=== PATIENT | male | born 1970 | race Caucasian/White ===

== ENCOUNTER 2020-07-12 21:10 | Inpatient (IN) | payer BC ==
[2020-07-12] MEDS ORDERED: CLINDAMYCIN 900MG/D5W 900 MG/50 ML IVPB IV ONE (22:03)
[2020-07-12] MEDS ORDERED: NA CHLORIDE 0.9% 1,000 ML ONE (22:03)
[2020-07-12 22:15] LABS: Bilirubin Direct 0.3 mg/dL (0-0.2); Bilirubin Total 0.8 mg/dL (0.2-1.0); Potassium 3.8 mmol/L (3.5-5.1); Protein, Total 7.5 g/dL (6.4-8.2)
[2020-07-12] MEDS ORDERED: dexAMETHasone 10 MG/ML VIAL ONE (22:29)
[2020-07-12 22:34] LABS: Protime INR 0.96
[2020-07-12 22:37] LABS: Absolute Lymphocytes (CBC) 1.8 K/uL (0.7-4.9); Basophils % 0.5 % (0-1.3); Hematocrit 41.3 % (39.6-49.0); Lymphocytes % 10.7 % (15.3-44.8); MPV 7.7 fL (7.6-11.3); RBC Red Blood Cell Count 4.73 M/uL (4.33-5.43)
--- NOTE | 2020-07-12 22:42 | EDPHYS ---
Physician Documentation [facility] Name: Edwin Lim Age: 50 yrs Sex: Male : 1970 Arrival Date: 07/12/2020 Time: 21:16 Bed 23 Private MD: ED Physician Bunny Caro HPI: 07/12 22:11 This 50 yrs old Male presents to ER via Ambulatory with complaints of mh7 Abscess, Swelling Of Tongue, Teeth Problem. 22:11 the patient presents with a swollen area of the lower right first molar (#30) and mh7 mouth. Description: swollen. Onset: The symptoms/episode began/occurred 2 day(s) ago. Possible cause(s): Tooth infection. Associated signs and symptoms: Pertinent positives: swelling, Pertinent negatives: discharge, drainage, erythema, foreign body sensation, fever, headache, nausea, shortness of breath, vomiting. Modifying factors: the symptoms are alleviated by nothing, the symptoms are aggravated by nothing. Severity of symptoms: At their worst the symptoms were moderate, earlier today, in the emergency department the symptoms are unchanged. Patient was started on Amoxicillin by dentist for right lower tooth infection. He reports increased swelling to tooth, mouth, and lower jaw.. Historical: - Allergies: 21:30 No Known Allergies; ca1 - Home Meds: 21:30 None [Active]; ca1 - PMHx: 21:30 Anxiety; ca1 - PSHx: 21:30 None; ca1 - Immunization history:: Flu vaccine is not up to date. - Social history:: Smoking status: Patient reports the use of cigarette tobacco products, smokes one pack cigarettes per day. ROS: 22:11 Constitutional: Negative for fever, chills, and weight loss, Eyes: Negative for injury, mh7 pain, redness, and discharge, Cardiovascular: Negative for chest pain, palpitations, and edema, Respiratory: Negative for shortness of breath, cough, wheezing, and pleuritic chest pain, Abdomen/GI: Negative for abdominal pain, nausea, vomiting, diarrhea, and constipation, Back: Negative for injury and pain, : Negative for injury, bleeding, discharge, and swelling, MS/Extremity: Negative for injury and deformity, Skin: Negative for injury, rash, and discoloration, Neuro: Negative for headache, weakness, numbness, tingling, and seizure, Psych: Negative for depression, anxiety, suicide ideation, homicidal ideation, and hallucinations, Allergy/Immunology: Negative for hives, rash, and allergies, Endocrine: Negative for neck swelling, polydipsia, polyuria, polyphagia, and marked weight changes, Hematologic/Lymphatic: Negative for swollen nodes, abnormal bleeding, and unusual bruising. Exam: 22:11 Constitutional: This is a well developed, well nourished patient who is awake, alert, mh7 and in no acute distress. 22:11 Eyes: Pupils equal round and reactive to light, extra-ocular motions intact. Lids and lashes normal. Conjunctiva and sclera are non-icteric and not injected. Cornea within normal limits. Periorbital areas with no swelling, redness, or edema. 22:11 Neck: Trachea midline, no thyromegaly or masses palpated, and no cervical lymphadenopathy. Supple, full range of motion without nuchal rigidity, or vertebral point tenderness. No Meningismus. Chest/axilla: Normal chest wall appearance and motion. Nontender with no deformity. No lesions are appreciated. Cardiovascular: Regular rate and rhythm with a normal S1 and S2. No gallops, murmurs, or rubs. Normal PMI, no JVD. No pulse deficits. Respiratory: Lungs have equal breath sounds bilaterally, clear to auscultation and percussion. No rales, rhonchi or wheezes noted. No increased work of breathing, no retractions or nasal flaring. Abdomen/GI: Soft, non-tender, with normal bowel sounds. No distension or tympany. No guarding or rebound. No evidence of tenderness throughout. Back: No spinal tenderness. No costovertebral tenderness. Full range of motion. Skin: Warm, dry with normal turgor. Normal color with no rashes, no lesions, and no evidence of cellulitis. MS/ Extremity: Pulses equal, no cyanosis. Neurovascular intact. Full, normal range of motion. Neuro: Awake and alert, GCS 15, oriented to person, place, time, and situation. Cranial nerves II-XII grossly intact. Motor strength 5/5 in all extremities. Sensory grossly intact. Cerebellar exam normal. Normal gait. Psych: Awake, alert, with orientation to person, place and time. Behavior, mood, and affect are within normal limits. 22:11 Head/face: Noted is swelling, of the right mandible and left mandible, and submandibular. 22:11 ENT: External ear(s): are unremarkable, Ear canal(s): are normal, TM's: are normal, Nose: is normal, Mouth: Tongue: is swollen, mild edema floor of mouth, drooling, is not appreciated, Posterior pharynx: is normal, airway is patent, Tonsils: are normal in appearance, Uvula: normal, swelling, is not appreciated, erythema, is not appreciated, exudate, is not appreciated, peritonsillar mass, is not appreciated, pooling of secretions, is not appreciated, Dental exam: dental caries, that is mild, specifically in the lower right first molar (#30), Voice: is normal, Breath odor: is normal. Vital Signs: 21:27 BP 152 / 91; Pulse 84; Resp 16 S; Temp 97(TE); Pulse Ox 97% on R/A; Weight 70.31 kg ca1 (R); Height 5 ft. 8 in. (172.72 cm) (R); Pain 7/10; 21:50 BP 136 / 79; Pulse 80; Resp 17; Pulse Ox 99% ; rr5 23:00 BP 125 / 79; Pulse 81; Resp 18; Pulse Ox 99% ; rr5 07/13 00:00 BP 131 / 75; Pulse 85; Resp 16; Pulse Ox 98% ; rr5 07/12 21:27 Body Mass Index 23.57 (70.31 kg, 172.72 cm) ca1 MDM: 07/12 22:38 Differential diagnosis: abscess, allergic reaction, cellulitis, Angioedema, Cj's mh7 Angina. Data reviewed: vital signs, nurses notes, lab test result(s), CBC, electrolytes, urinalysis, radiologic studies, CT scan. Data interpreted: Pulse oximetry: on room air is 97 %. Interpretation: normal. Counseling: I had a detailed discussion with the patient and/or guardian regarding: the historical points, exam findings, and any diagnostic results supporting the discharge/admit diagnosis, the presence of at least one elevated blood pressure reading (>120/80) during this emergency department visit, lab results, the need for further work-up and treatment in the hospital. Physician consultation: Ladonna Obregon MD was contacted at 22:00, regarding patient's condition, and will see patient in ED, would like admission per Dr. Nick King DO in the emergency department to see patient at 22:25. 22:42 Patient medically screened. [facility] 07/12 21:43 Order name: CBC with Diff; Complete Time: 22:38 [facility] 07/12 21:43 Order name: Basic Metabolic Panel; Complete Time: 22:21 [facility] 07/12 21:43 Order name: LFT's; Complete Time: 22:21 [facility] 07/12 21:43 Order name: Protime (+inr); Complete Time: 22:38 [facility] 07/12 21:43 Order name: Ptt, Activated; Complete Time: 22:38 [facility] 07/12 21:43 Order name: Blood Culture Adult (2) [facility] 07/12 21:43 Order name: CT Soft Tissue Neck W/contr [facility] 07/12 22:43 Order name: COVID-19 : Document "Date of Symptom Onset" if Symptomatic. lp1 07/13 00:01 Order name: CREATININE WHOLE BLOOD EDMS 02 00:35 Order name: SARS-COV-2 RT PCR EDMS Administered Medications: 21:50 Drug: NS 0.9% 1000 ml Route: IV; Rate: 1000 ml; Site: right forearm; rr5 07/13 00:01 Follow up: Response: No adverse reaction; IV Status: Completed infusion; IV Intake: rr5 1000ml 07/12 22:12 Drug: Clindamycin 900 mg Route: IVPB; Infused Over: 30 mins; Site: right forearm; rv 22:50 Follow up: Response: No adverse reaction; IV Status: Completed infusion; IV Intake: [id number] 22:20 Drug: Decadron - Dexamethasone 10 mg Route: IVP; Site: right forearm; rv 23:20 Follow up: Response: No adverse reaction rr5 22:52 Drug: Pepcid 20 mg Route: IVP; Site: right forearm; rr5 07/13 00:00 Follow up: Response: No adverse reaction rr5 07/12 22:54 Drug: morphine 2 mg {Note: rass 0.} Route: IVP; Site: right forearm; rr5 07/13 00:00 Follow up: Response: No adverse reaction; Pain is decreased; RASS: Alert and Calm (0) rr5 Disposition: 07/13/20 00:14 Hospitalization ordered by Nick King for Inpatient Admission. Preliminary diagnosis is Dental caries - Cj's Angina. - Bed requested for Telemetry/MedSurg (Inpatient). - Status is Inpatient Admission. lp1 - Condition is Stable. Signatures: Dispatcher [employer] EDMS Kellie Ruiz, RN RN lp1 William Saunders, FOUNDRY SUPERVISOR-C FOUNDRY SUPERVISOR-Cla1 Sulma Schwartz, RN RN cg Júnior Khan, RN EMANUEL rv Antonino Jensen, RN RN rr5 Heidi Cleveland RN RN [facility] Bunny Caro MD MD 7 Corrections: (The following items were deleted from the chart) 07/12 23:59 22:42 Hospitalization Ordered by Nick King DO for Inpatient Admission. Preliminary rv diagnosis is Ludwigs Angina. Bed requested for Telemetry/MedSurg (Inpatient). Status is Inpatient Admission. Condition is Stable. Problem is new. Symptoms have improved. [facility] 07/13 00:15 00:14 Hospitalization Ordered by Bunny Caro MD for Inpatient Admission. Preliminary lp1 diagnosis is Dental caries - Cj's Angina. Bed requested for [facility] ER HOLD. Status is Inpatient Admission. Condition is Stable. lp1 00:50 00:15 07/13/2020 00:14 Hospitalization Ordered by Nick King DO for Inpatient Admission. Preliminary diagnosis is Dental caries - Cj's Angina. Bed requested for [facility] ER HOLD. Status is Inpatient Admission. Condition is Stable. lp1 03:17 00:50 07/13/2020 00:14 Hospitalization Ordered by Nick King DO for Inpatient lp1 Admission. Preliminary diagnosis is Dental caries - Cj's Angina. Bed requested for Telemetry/MedSurg (Inpatient). Status is Inpatient Admission. Condition is Stable. cg
--- NOTE | 2020-07-12 22:42 | ER ---
Nurse's Notes [facility] Name: Edwin Lim Age: 50 yrs Sex: Male : 1970 Arrival Date: 07/12/2020 Time: 21:16 Bed 23 Private MD: Diagnosis: Dental caries-Cj's Angina Presentation: 07/12 21:27 Chief complaint: Patient states: Abscess tooth R lower started Wednesday. On ABX now x ca1 2 days. Reports pain, tongue swollen, difficulty swallowing. Reports swelling under chin. Denies difficulty breathing. Has a dentist appointment Wednesday next week. Coronavirus screen: Client denies travel out of the [place] in the last 14 days. At this time, the client does not indicate any symptoms associated with coronavirus-19. Ebola Screen: Patient negative for fever greater than or equal to 101.5 degrees Fahrenheit, and additional compatible Ebola Virus Disease symptoms Patient denies exposure to infectious person. Patient denies travel to an Ebola-affected area in the 21 days before illness onset. No symptoms or risks identified at this time. Initial Sepsis Screen: Does the patient meet any 2 criteria? No. Patient's initial sepsis screen is negative. Does the patient have a suspected source of infection? No. Patient's initial sepsis screen is negative. Risk Assessment: Do you want to hurt yourself or someone else? Patient reports no desire to harm self or others. Onset of symptoms was July 12, 2020. 21:27 Method Of Arrival: Ambulatory ca1 21:27 Acuity: MAIOC 3 ca1 Historical: - Allergies: 21:30 No Known Allergies; ca1 - Home Meds: 21:30 None [Active]; ca1 - PMHx: 21:30 Anxiety; ca1 - PSHx: 21:30 None; ca1 - Immunization history:: Flu vaccine is not up to date. - Social history:: Smoking status: Patient reports the use of cigarette tobacco products, smokes one pack cigarettes per day. Screenin:38 Abuse screen: Denies threats or abuse. Denies injuries from another. Nutritional rr5 screening: No deficits noted. Tuberculosis screening: No symptoms or risk factors identified. Fall Risk Total Andrade Fall Scale indicates No Risk (0-24 pts). Assessment: 21:30 General: Appears in no apparent distress. uncomfortable, Behavior is calm, cooperative, rr5 appropriate for age. Pain: Complains of pain in mouth Pain radiates to neck Pain currently is 7 out of 10 on a pain scale. Quality of pain is described as aching, Pain began gradually, Is intermittent. Neuro: Level of Consciousness is awake, alert, obeys commands, Oriented to person, place, time, situation. Cardiovascular: Capillary refill < 3 seconds Patient's skin is warm and dry. Respiratory: Airway is patent Respiratory effort is even, unlabored, Respiratory pattern is regular, symmetrical. GI: No signs and/or symptoms were reported involving the gastrointestinal system. : No signs and/or symptoms were reported regarding the genitourinary system. EENT: Poor dentition noted. Dental caries noted in lower right first molar (#30) Throat with gag reflex present, Reports pain when swallowing Pain is 7 out of 10 on a pain scale. 21:30 Derm: Skin is pink, warm \T\ dry. Skin temperature is warm. Musculoskeletal: Capillary rr5 refill < 3 seconds. 22:30 Reassessment: Patient appears in no apparent distress at this time. dr. joyce with rr5 hospitalist at bedside examining the patient. 23:59 Reassessment: Patient appears in no apparent distress at this time. Patient is alert, rr5 oriented x 3, equal unlabored respirations, skin warm/dry/pink. Vital Signs: 21:27 BP 152 / 91; Pulse 84; Resp 16 S; Temp 97(TE); Pulse Ox 97% on R/A; Weight 70.31 kg ca1 (R); Height 5 ft. 8 in. (172.72 cm) (R); Pain 7/10; 21:50 BP 136 / 79; Pulse 80; Resp 17; Pulse Ox 99% ; rr5 23:00 BP 125 / 79; Pulse 81; Resp 18; Pulse Ox 99% ; rr5 07/13 00:00 BP 131 / 75; Pulse 85; Resp 16; Pulse Ox 98% ; rr5 07/12 21:27 Body Mass Index 23.57 (70.31 kg, 172.72 cm) ca1 ED Course: 07/12 21:16 Patient arrived in ED. bp1 21:23 Júnior Khan, EMANUEL is Primary Nurse. rv 21:29 Triage completed. ca1 21:30 Arm band placed on right wrist. ca1 21:31 Bunny Caro MD is Attending Physician. mh7 21:38 Patient has correct armband on for positive identification. Bed in low position. Call rr5 light in reach. Pulse ox on. NIBP on. 21:45 Inserted saline lock: 20 gauge in right forearm, using aseptic technique. ,using rr5 aseptic technique. inserted by afsaneh CASTELLANOS Blood collected. 21:45 First set of blood cultures drawn by ED staff. rr5 22:26 CT Soft Tissue Neck W/contr In Process Unspecified. EDMS 22:41 Nick King DO is Hospitalizing Provider. mh7 07/13 00:02 No provider procedures requiring assistance completed. Patient admitted, IV remains in rr5 place. intact, No redness/swelling at site. 00:02 No provider procedures requiring assistance completed. rv 00:11 Bunny Caro MD is Hospitalizing Provider. lp1 00:15 Hospitalizing Provider role handed off by Bunny Caro MD lp1 00:15 Nick King DO is Hospitalizing Provider. lp1 Administered Medications: 07/12 21:50 Drug: NS 0.9% 1000 ml Route: IV; Rate: 1000 ml; Site: right forearm; rr5 07/13 00:01 Follow up: Response: No adverse reaction; IV Status: Completed infusion; IV Intake: rr5 1000ml 07/12 22:12 Drug: Clindamycin 900 mg Route: IVPB; Infused Over: 30 mins; Site: right forearm; rv 22:50 Follow up: Response: No adverse reaction; IV Status: Completed infusion; IV Intake: [id number] 22:20 Drug: Decadron - Dexamethasone 10 mg Route: IVP; Site: right forearm; rv 23:20 Follow up: Response: No adverse reaction rr5 22:52 Drug: Pepcid 20 mg Route: IVP; Site: right forearm; rr5 07/13 00:00 Follow up: Response: No adverse reaction rr5 07/12 22:54 Drug: morphine 2 mg {Note: rass 0.} Route: IVP; Site: right forearm; rr5 07/13 00:00 Follow up: Response: No adverse reaction; Pain is decreased; RASS: Alert and Calm (0) rr5 Intake: 07/12 22:50 IV: 50ml; Total: 50ml. rr5 07/13 00:01 IV: 1000ml; Total: 1050ml. rr5 Outcome: 07/12 22:42 Decision to Hospitalize by Provider. mh7 07/13 00:02 Admitted to ER Hold. Please see [facility] for further documentation. rr5 Condition: stable Instructed on the need for admit. 00:14 Decision to Hospitalize by Provider. lp1 03:17 Patient left the ED. lp1 Signatures: Dispatcher [employer] EDMS Kellie Ruiz RN RN lp1 Júnior Khan, RN RN rv Antonino Jensen RN RN rr5 Heidi Cleveland RN RN ca1 María Coffman Maurice, MD MD 7 Corrections: (The following items were deleted from the chart) 07/12 20:35 21:27 Chief complaint: Patient states: Abscess tooth R lower started Wednesday. On ABX ca1 now x 2 days. Reports pain, tongue swollen, difficulty swallowing. Denies difficulty breathing. Has a dentist appointment Wednesday next week ca1 21:27 Acuity: MAICO 4 ca1 ca1
[2020-07-12] MEDS ORDERED: FAMOTIDINE 20 MG/2 ML VIAL IV ONE (22:59)
[2020-07-12] MEDS ORDERED: MORPHINE 2 MG/ML SYR ONE (23:03)
--- NOTE | 2020-07-13 | P.HP ---
Certification for Inpatient Patient admitted to: Inpatient With expected LOS: >2 Midnights Patient will require the following post-hospital care: None Practitioner: I am a practitioner with admitting privileges, knowledge of patient current condition, hospital course, and medical plan of care. Services: Services provided to patient in accordance with Admission requirements found in Title 42 Section 412.3 of the Code of Federal Regulations <William Saunders - Last Filed: 07/12/20 23:55> Patient admitted to: Inpatient With expected LOS: >2 Midnights <Nick King - Last Filed: 07/13/20 15:42> Patient History Date of Service: 07/12/20 Primary Care Provider: Kerline Russo Reason for admission: Cj's angina History of Present Illness: 50-year-old male with history of depression, anxiety, cluster headaches presents the emergency department for facial swelling. Patient reports that he has been dealing with dental infection over the course of the last few days. Patient reports being on amoxicillin since Wednesday but having increased swelling over the last 2 days. Upon arrival to the ED patient noted to have submandibular and sublingual edema. Lab significant for white blood cell count 17 with left shift. ENT was consulted and saw the patient in the emergency department, patient with Cj's angina. At this time patient is able to handle his secretions very well speech is clear appropriate, in no increase in respiratory effort at all. Appears to be a mild to moderate case of Cj's. EENT okay with patient going to floor for close monitoring with IV antibiotics and steroids. CT does not identify any discrete drainable abscess. Patient has appointment on Wednesday to have offending tooth removed. Will admit for further evaluation and management. - Past Medical/Surgical History -: Depression -: Anxiety -: Cluster headaches -: none Psychosocial/ Personal History: Patient lives with his - Family History Family History: Reviewed- Non-Contributory - Social History Smoking Status: Current every day smoker Counseled patient to stop smoking for: less than 10 minutes Smoking therapy provided: Yes Alcohol use: Yes CD- Drugs: No Caffeine use: Yes Place of Residence: Home <William Saunders - Last Filed: 07/12/20 23:55> Date of Service: 07/13/20 <Nick King - Last Filed: 07/13/20 15:42> Review of Systems 10-point ROS is otherwise unremarkable General: Malaise ENT: Mouth Pain, Mouth Swelling, Throat Pain, Other (Submandibular edema), As per HPI <William Saunders - Last Filed: 07/12/20 23:55> Physical Examination - Physical Exam General: Alert, In no apparent distress, Oriented x3 HEENT: Mucous membr. moist/pink, Other (Submandibular, subungual edema, poor dentition with would appear to be abscessed tooth on the lower right) Neck: Supple Respiratory: Clear to auscultation bilaterally, Normal air movement Cardiovascular: No edema, Normal S1 S2 Capillary refill: <2 Seconds Gastrointestinal: Normal bowel sounds Musculoskeletal: No contractures, No erythema, No tenderness Integumentary: No significant lesion, No tenderness/swelling, No erythema Neurological: Normal speech, Normal strength at 5/5 x4 extr, Normal tone, Sensation intact - Studies Laboratory Data (last 24 hrs) 07/12/20 21:45: PT 11.0, INR 0.96, APTT 27.9 07/12/20 21:45: Sodium 140, Potassium 3.8, BUN 12, Creatinine 1.07, Glucose 83, Total Bilirubin 0.8, AST 14 L, ALT 29, Alkaline Phosphatase 90 07/12/20 21:45: WBC 17.10 H, Hgb 13.7, Hct 41.3, Plt Count 259 <William Saunders - Last Filed: 07/12/20 23:55> - Studies Laboratory Data (last 24 hrs) 07/12/20 21:45: PT 11.0, INR 0.96, APTT 27.9 07/12/20 21:45: Sodium 140, Potassium 3.8, BUN 12, Creatinine 1.07, Glucose 83, Total Bilirubin 0.8, AST 14 L, ALT 29, Alkaline Phosphatase 90 07/12/20 21:45: WBC 17.10 H, Hgb 13.7, Hct 41.3, Plt Count 259 <Nick King - Last Filed: 07/13/20 15:42> Assessment and Plan - Plan Assessment Cj's angina secondary to dental caries with abscess Depression with anxiety Plan Cj's angina secondary to dental caries with abscess: ENT has seen and evaluated the patient, continue IV clindamycin. Patient takes prednisone 20 mg once daily for last couple of weeks for cluster headaches, will give patient bolus doses of Decadron x3 followed by continuing prednisone 20 mg daily. Patient currently in no respiratory distress, speech is clear, no difficulty handling secretions. Will continue to monitor patient very closely for worsening and the need of securing airway. Patient reports having appointment on Wednesday to have offending tooth removed. DVT prophylaxis Lovenox 40 mg subcutaneous once daily. Full liquid diet. Depression with anxiety: Obtain and continue home medications as appropriate. Discharge Plan: Home Plan to discharge in: 72 Hours - Advance Directives Does patient have a Living Will: No Does patient have a Durable POA for Healthcare: No - Code Status/Comfort Care Code Status Assessed: Yes (Full code) Critical Care: No Time Spent Managing Pts Care (In Minutes): 55 <William Saunders - Last Filed: 07/12/20 23:55> - Plan agree with plan of care. case discussed with [employer]ANCE GROUP LEADER. <Nick King - Last Filed: 07/13/20 15:42>
[2020-07-13] MEDS ORDERED: ACETAMINOPHEN 500 MG TAB PO PRN (00:43)
[2020-07-13] MEDS ORDERED: ONDANSETRON 4 MG/2 ML VIAL IV PRN (00:43)
[2020-07-13] MEDS: CLINDAMYCIN INJ 600 MG in NA CHLORIDE 0.9% 50 ML IV SCH ×3 (01:00→17:24)
[2020-07-13] MEDS: HYDROCODONE/APAP 5/325 MG TAB PO PRN ×4 (01:03→18:57)
[2020-07-13] MEDS: NA CHLORIDE 0.9% 1,000 ML IV SCH ×3 (01:04→20:12)
[2020-07-13] MEDS ORDERED: HYDROCODONE/APAP 5/325 MG TAB ONE (01:18)
[2020-07-13] MEDS ORDERED: NA CHLORIDE 0.9% 1,000 ML ONE (01:18)
--- NOTE | 2020-07-13 01:43 | CON ---
Date of Consultation: 07/12/2020 Reason For Consultation: Oral cellulitis. History Of Present Illness: Mr. Lim began having some sore throat on Wednesday, July 08. He DICTATION ENDS HERE. HAYLEY Voice ID: [id number] Report ID: [id number]
--- NOTE | 2020-07-13 02:28 | CON ---
Date of Consultation: 07/12/2020 Reason For Consultation: Oral cellulitis. History Of Present Illness: Mr. Lim presented to the emergency room on the evening of July 12 with a 5-day history of progressive mouth pain and throat pain and swelling. He was seen earlier this week by his dentist and started on amoxicillin, but continued to have fluctuation, but general progression of the swelling and sought additional medical evaluation. He is scheduled to see his dentist on Wednesday for extraction of the affected tooth. Past Medical History: Depression, anxiety, cluster headache. Past Surgical History: None. Allergies: NONE. Home Medications: Include prednisone 20 mg daily for the last 2 weeks. Primary Care Physician: Dr. Kerline wKok. Social History: Smokes about 1 pack a day. Drinks 2-4 alcoholic beverages per week. Denies drug use. The patient is and lives at home with his . Physical Examination: The patient is in no acute distress. He is controlling his secretions. His speech is easily understandable. He appears relaxed and is able to sit in a semi-reclined position without difficulty. His head and face are normocephalic and atraumatic. His external ears are normal. His pupils are equal, round, and reactive. His extraocular movements are intact. His sclerae are clear. His external nose is unremarkable. He nares appear patent. His lips appear normal. He has no significant trismus. The oral tongue does not appear significantly swollen. The floor of mouth, however, appears moderately edematous, particularly around the opening of Emanuel's ducts where there are small areas of white eschar. The area is mild to moderately tender and mildly indurated, but not hard. On the right side, his second molar has a large filling. The first molar is cracked with a missing portion of tooth. The remaining teeth appear grossly remarkable. The patient has moderate firm induration of the submental area in level 1 of the neck. The skin of the lower neck appears red, but maybe due to sun exposure rather than infection. The skin overlying the submental area does not appear significantly erythematous at this time. Review Of Data: CT images performed in the emergency room are personally reviewed. No radiology report is available at the time of my review. There is no significant or organized fluid collection. There is diffuse edema with his physical exam of the floor of mouth. The edges of the epiglottis appeared sharp. There is downward displacement of the mylohyoid with fat stranding of the subcutaneous tissues of the submental region. There is periapical lucency with erosion of the lingual surface of the mandible adjacent to the second right mandibular molar. There are some prominent lymph nodes within the neck, which are likely reactive in this clinical setting. Assessment: Cj's angina without current evidence of airway obstruction. Plan: I recommend aggressive medical therapy with IV antibiotic, clindamycin. I recommend Decadron 8-10 mg every 8 hours for 2-3 doses and would continue his baseline prednisone and other home medications. The patient currently is clinically appropriate for floor status, but is counselled regarding notification of nursing and medical staff for any worsening of swelling, swallowing, or speaking, which could indicate progression of the infection and possible need for intubation or other methods of securing his airway. There is no current plan for surgical intervention and if the patient improves with medical therapy over the next 24 to 48 hours, he can be discharged to the care of his dentist or addressing the 2 as the source of this infection. I spoke with the patient personally following my exam. I spoke with the patient's during our discussion to coordinate care. Overall, in preparation, history and physical, review of imaging and care coordination, I spent 45 minutes with this patient. I will plan to re-evaluate him in the morning to aid in decision making in regard to his medical progression versus improvement. HAYLEY Voice ID: [id number] Report ID: [id number] ANITA
[2020-07-13 03:19] VITALS: BMI 24.5
[2020-07-13] MEDS: MORPHINE 2 MG/ML SYR IV PRN (03:22)
[2020-07-13 05:59] LABS: Absolute Lymphocytes (CBC) 0.7 K/uL (0.7-4.9); Basophils % 0.3 % (0-1.3); Hematocrit 41.3 % (39.6-49.0); Lymphocytes % 3.5 % (15.3-44.8); MPV 7.6 fL (7.6-11.3); RBC Red Blood Cell Count 4.69 M/uL (4.33-5.43)
[2020-07-13 06:06] LABS: Magnesium 2.6 mg/dL (1.8-2.4); Potassium 4.5 mmol/L (3.5-5.1)
[2020-07-13] MEDS: dexAMETHasone 10 MG/ML VIAL IV SCH ×2 (06:48→14:25)
[2020-07-13] MEDS ORDERED: dexAMETHasone 10 MG/ML VIAL IV SCH (07:00)
--- NOTE | 2020-07-13 09:24 | PN ---
Date of Progress Note: 07/13/2020 Interim History: The patient was admitted last night for aggressive medical therapy for Cj's angina with infection coming from an abscessed right mandibular molar tempted admission last night. The patient has remained stable. He is able to tolerate full liquid diet. He continued to have a stable degree of pain and discomfort. Objective: The patient is in no acute distress. He is alert and oriented. He is lying relaxed semi reclined in bed. He has no trouble tolerating his secretion. His speech is easily understandable. The submental skin remains indurated and swollen with no significant improvement compared to approximately 10 hours ago. The floor of mouth remains [id number] indurated with moderate soft tissue edema, particularly around Cameron's duct. The area remained tender to palpation. Assessment: Cj angina, stable compared to last night. The patient does not appear to be worsening or require any acute airway intervention at this time. I strongly recommend continued IV therapy and monitoring. We will continue to follow and reassess the patient in regard to clinical improvement and candidacy for discharge. HAYLEY Voice ID: [id number] Report ID: [id number] ANITA
[2020-07-13] MEDS: ENOXAPARIN 40 MG/0.4 ML SQ SCH (09:44)
[2020-07-13] MEDS: ROSUVASTATIN 10 MG TAB PO SCH (09:44)
[2020-07-13] MEDS: SERTRALINE HCL 100 MG TAB PO SCH (09:44)
[2020-07-13 10:51] LABS: White Blood Cell Scan OK (OK)
[2020-07-13 10:52] LABS: Blood Morphology Comment NOT SEEN (NOT SEEN); Platelet Estimate ADEQ
--- NOTE | 2020-07-13 15:48 | P.PN ---
Subjective Date of Service: 07/13/20 Primary Care Provider: Kerline Russo Chief Complaint: Cj's angina Subjective: Improving (Swelling to the neck improved. Pain is improved.) Physical Examination - Vital Signs Temperature: 98.1 F Blood Pressure: 137/82 Pulse: 101 Respirations: 18 Pulse Ox (%): 95 - Studies Laboratory Data (last 24 hrs) 07/12/20 21:45: PT 11.0, INR 0.96, APTT 27.9 07/12/20 21:45: Sodium 140, Potassium 3.8, BUN 12, Creatinine 1.07, Glucose 83, Total Bilirubin 0.8, AST 14 L, ALT 29, Alkaline Phosphatase 90 07/12/20 21:45: WBC 17.10 H, Hgb 13.7, Hct 41.3, Plt Count 259 Assessment & Plan Discharge Plan: Home Plan to discharge in: 48 Hours Physician Review Additional Text: Physical Exam: General: Alert, In no apparent distress, Oriented x3 HEENT: Mucous membr. moist/pink, Other (Submandibular, subungual edema, poor dentition with would appear to be abscessed tooth on the lower right) Neck: Supple Respiratory: Clear to auscultation bilaterally, Normal air movement Cardiovascular: No edema, Normal S1 S2 Capillary refill: <2 Seconds Gastrointestinal: Normal bowel sounds Musculoskeletal: No contractures, No erythema, No tenderness Integumentary: No significant lesion, No tenderness/swelling, No erythema Neurological: Normal speech, Normal strength at 5/5 x4 extr, Normal tone, Sensation intact Impression: Cj's angina secondary to dental caries with abscess Depression with anxiety Plan: Cj's angina secondary to dental caries with abscess: Pain is controlled. Erythema and swelling improved. Spoke to ENT. Continue with IV antibiotics. Continue with steroids. Will continue to monitor. Anticipate home as early as tomorrow or Wednesday. To see Dentist on Wednesday. Depression with anxiety: Continue medication Time Spent Managing Pts Care (In Minutes): 55
--- NOTE | 2020-07-13 16:59 | RAD REPORT ---
EXAM DESCRIPTION: CT - Soft Tissue Neck W/Contr - 07/13/2020 6:44 am CLINICAL HISTORY: 50 years Male, abscess right lower tooth, started Wednesday, difficulty swallowing , swelling. TECHNIQUE Axial CT imaging of the soft tissues of the neck were performed following the administrati on of intravenous contrast. followed by sagittal and coronal reconstructed images. The CT study is pe rformed according to ALARA (as low as reasonably achievable) or ALARA/IMAGE GENTLY, with automatic ad justment of mA and/or kV according to patient size. Performed on: 07/12/2020 at 10:19 PM COMPARISON: None. FINDINGS: This is The oral cavity, oropharynx and nasopharynx are normal. Some portions of the oral cavity and orophary nx are obscured by streak artifact related to the patient's dental hardware. The parapharyngeal fa t planes are preserved. The hypopharynx is unremarkable. The epiglottis and aryepiglottic folds are normal. There is effacement of the right vallecula and rig ht piriform sinus. The preepiglottic fat is preserved. The thyroid, cricoid and arytenoid cartilag es are normal. The region of the false and true vocal cords is normal as is the anterior commissure. The parotid and submandibular glands are grossly within normal limits. No intrinsic mass lesions are seen. There is edema within the right submandibular space anterior to the right submandibular gland a nd posterior medial to the right submandibular gland with slight mass effect on the right parapharyng eal soft tissues. Small developing abscesses are not excluded. There is effacement of the right vicente lecula and right piriform sinus as noted above. There is also infiltration of the subcutaneous fat de ep to the platysma muscle consistent with inflammation. There are small lymph nodes in the right subm andibular space at the level of the angle of the right hemimandible. A well-defined abscess is not id entified. There is a lucency surrounding the right posterior mandibular molar most consistent with in fection. The carotid sheaths are normal bilaterally. The paranasal sinuses and mastoid air cells are clear. No definite pathologically enlarged lymph nodes are identified The thyroid gland is normal in size and configuration. The thoracic inlet is normal. The superior mediastinum and lung apices are normal. No acute osseous abnormalities are identified. There is degenerative disc disease at C5-C6 and C6-C7. IMPRESSION: 1. Inflammatory changes with edema in the right submandibular space at the level of the angle of the right hemimandible surrounding the right submandibular gland with slight mass effect on the right parapharyngeal soft tissues. Small developing abscesses adjacent to the right submandibular gland are not excluded. There is a lucency surrounding the right posterior mandibular molar most con sistent with infection. 2. Degenerative disc disease at C5-C6 and C6-C7. Electronically signed by: Joelle Rajput DO 07/12/2020 11:25 PM [employer] Due to temporary technical issues with the PACS/Fluency reporting system, reports are being signed by the in house radiologists without review as a courtesy to insure prompt reporting. The interpreting radiologist is fully responsible for the content of the report.
[2020-07-14] MEDS: MORPHINE 2 MG/ML SYR IV PRN ×4 (00:29→21:35)
[2020-07-14] MEDS: CLINDAMYCIN INJ 600 MG in NA CHLORIDE 0.9% 50 ML IV SCH ×3 (00:33→16:27)
[2020-07-14] MEDS: HYDROCODONE/APAP 5/325 MG TAB PO PRN ×5 (04:39→23:50)
[2020-07-14 05:58] LABS: Absolute Lymphocytes (CBC) 1.3 K/uL (0.7-4.9); Basophils % 0.3 % (0-1.3); Hematocrit 37.2 % (39.6-49.0); Lymphocytes % 6.7 % (15.3-44.8); MPV 7.5 fL (7.6-11.3); RBC Red Blood Cell Count 4.29 M/uL (4.33-5.43)
[2020-07-14 06:06] LABS: BUN Blood Urea Nitrogen 15 mg/dL (7-18); Bicarbonate 26 mmol/L (21-32); Glucose Level 102 mg/dL (74-106); Magnesium 2.5 mg/dL (1.8-2.4); Sodium Level 138 mmol/L (136-145)
[2020-07-14] MEDS: predniSONE 20 MG TAB PO SCH (08:34)
[2020-07-14] MEDS: ROSUVASTATIN 10 MG TAB PO SCH (08:34)
[2020-07-14] MEDS: ALPRAZOLAM 0.5 MG TABLET PO PRN (08:34)
[2020-07-14] MEDS: SERTRALINE HCL 100 MG TAB PO SCH (08:35)
[2020-07-14] MEDS: ENOXAPARIN 40 MG/0.4 ML SQ SCH (08:35)
--- NOTE | 2020-07-14 09:27 | P.PN ---
Subjective Date of Service: 07/14/20 Primary Care Provider: Kerline Russo Chief Complaint: Cj's angina Subjective: Other (Patient remains afebrile. Still with pain. Requiring IV pain medication. This am he reports more swelling to the right side of the mandible and tongue.) Physical Examination - Vital Signs Temperature: 97.9 F Blood Pressure: 148/86 Pulse: 70 Respirations: 18 Pulse Ox (%): 98 Assessment & Plan Discharge Plan: Home Plan to discharge in: 48 Hours Physician Review Additional Text: Physical Exam: General: Alert, In no apparent distress, Oriented x3 HEENT: Mucous membr. moist/pink. Tongue slightly swollen. Swelling and induration to the submandibular region. Some erythema noted to the area as well. Patient breathing appropriately. Nasal passages clear. No significant respiratory distress noted. Poor dentition noted. Neck: Supple Respiratory: Clear to auscultation bilaterally, Normal air movement Cardiovascular: No edema, Normal S1 S2 Capillary refill: <2 Seconds Gastrointestinal: Normal bowel sounds Musculoskeletal: No contractures, No erythema, No tenderness Integumentary: No significant lesion, No tenderness/swelling, No erythema Neurological: Normal strength at 5/5 x4 extr, Normal tone, Sensation intact CT scan neck 07/12/2020 FINDINGS: This is The oral cavity, oropharynx and nasopharynx are normal. Some portions of the oral cavity and oropharynx are obscured by streak artifact related to the patient's dental hardware. The parapharyngeal fat planes are preserved. The hypopharynx is unremarkable. The epiglottis and aryepiglottic folds are normal. There is effacement of the right vallecula and right piriform sinus. The preepiglottic fat is preserved. The thyroid, cricoid and arytenoid cartilages are normal. The region of the false and true vocal cords is normal as is the anterior commissure. The parotid and submandibular glands are grossly within normal limits. No intrinsic mass lesions are seen. There is edema within the right submandibular space anterior to the right submandibular gland and posterior medial to the right submandibular gland with slight mass effect on the right parapharyngeal soft tissues. Small developing abscesses are not excluded. There is effacement of the right vallecula and right piriform sinus as noted above. There is also infiltration of the subcutaneous fat deep to the platysma muscle consistent with inflammation. There are small lymph nodes in the right submandibular space at the level of the angle of the right hemimandible. A well-defined abscess is not identified. There is a lucency surrounding the right posterior mandibular molar most consistent with infection. The carotid sheaths are normal bilaterally. The paranasal sinuses and mastoid air cells are clear. No definite pathologically enlarged lymph nodes are identified The thyroid gland is normal in size and configuration. The thoracic inlet is normal. The superior mediastinum and lung apices are normal. No acute osseous abnormalities are identified. There is degenerative disc disease at C5-C6 and C6-C7. IMPRESSION: 1. Inflammatory changes with edema in the right submandibular space at the level of the angle of the right hemimandible surrounding the right submandibular gland with slight mass effect on the right parapharyngeal soft tissues. Small developing abscesses adjacent to the right submandibular gland are not excluded. There is a lucency surrounding the right posterior mandibular molar most consistent with infection. 2. Degenerative disc disease at C5-C6 and C6-C7. CT scan neck today stat ordered Impression: Cj's angina secondary to dental caries with CT scan showing inflammatory changes with edema in the right submandibular space at the level of the right hemimandible surrounging the right submandibular gland with slight mass effect on the right parapharyngeal soft tissues. Small developing abscess adjacent to the right submandibular gland and lucency surrounding the right posterior mandibular molar consistent with infection Depression with anxiety Plan: Cj's angina secondary to dental caries with CT scan showing inflammatory changes with edema in the right submandibular space at the level of the right hemimandible surrounging the right submandibular gland with slight mass effect on the right parapharyngeal soft tissues. Small developing abscess adjacent to the right submandibular gland and lucency surrounding the right posterior mandibular molar consistent with infection: Patient with slight more pain today. Continue pain medication. Case discussed with ENT. ENT recommended to recheck stat CT scan to further evaluate. ENT also recommended oral surgery. Spoke with oral surgeon-Dr. Machuca who graciously accepted consultation. Oral surgery plans to re-evaluate stat CT scan and anticipates surgical intervention today. Will keep the patient NPO. Will also add Unasyn. Patient currently on IV clindamycin. Plan of care addressed with the patient. Patient understands and agrees with plan. Await further evaluation by oral surgery and his recommendations. I will turn the service over to the hospitalist team tomorrow. I will go over the plan of care with him.. Depression with anxiety: Continue medication Time Spent Managing Pts Care (In Minutes): 55
--- NOTE | 2020-07-14 10:05 | RAD REPORT ---
EXAM DESCRIPTION: CT - Soft Tissue Neck W/Contr CLINICAL HISTORY: f/u Facial pain and swelling, tooth pain COMPARISON: Soft Tissue Neck W/Contr dated 07/12/[address] scans are performed using dose optimization technique as appropriate and may includ e automated exposure control or mA/KV adjustment according to patient size. FINDINGS: There is moderate swelling seen along the floor of the mouth along the right submandibular location. Several large reactive lymph nodes are seen in the region. Compared to 07/12/2020 CT bruit edema and swelling as mildly progressed. An oblong abscess appears present on today's study along the right with mild adjacent to the lingual surface of the mandible measuring 20 x 13 mm. These appear to communicate with oblong abscess collect ions in the sublingual soft tissues anteriorly measuring 20 x 11 mm and posteriorly measuring 10 x 7 mm. Sublingual soft tissues are inflamed with several lymph nodes present. Edematous fluid without di screte abscess is seen along the right base of the tongue with mild mass effect on the pharynx. Moder ate edema seen within the right submandibular gland. Mild periapical lucency is again seen involving the right posterior molar. No vascular compromise evident. No prevertebral fluid. IMPRESSION: Moderate progression in the right-sided facial swelling and infection since 07/12/2020. Archbald abscess collection is seen along the right floor of mouth extending into the sublingual soft t issues.
[2020-07-14] MEDS: AMPICILLIN/SULBACT 3 GM in NA CHLORIDE 0.9% 100 ML IVPB SCH ×2 (10:26→16:27)
[2020-07-14] MEDS: LIDOCAINE 1% W/EPI 1:100,000 10 ML VIAL ONE ×2 (11:21→12:02)
[2020-07-14] MEDS: CHLORHEXIDINE 0.12% 473ML BOT MM ONE ×2 (11:22→12:02)
[2020-07-14] MEDS ORDERED: MIDAZOLAM HCL 2 MG/2 ML INJ ONE (11:31)
[2020-07-14] MEDS ORDERED: LIDOCAINE 1% MPF 5 ML VIAL ONE ×2 (11:31→11:33)
[2020-07-14] MEDS ORDERED: FENTANYL CITR 100 MCG/2 ML ONE (11:31)
[2020-07-14] MEDS ORDERED: GLYCOPYRROLATE 0.2 MG/ML SYR ONE (11:31)
[2020-07-14] MEDS ORDERED: propofoL 200 MG/20 ML VIAL IV ONE (11:31)
[2020-07-14] MEDS ORDERED: KETOROLAC 30 MG/ML INJ ONE (11:32)
[2020-07-14] MEDS ORDERED: NEOSTIGMINE 1 MG/ML -5 ML ONE (11:32)
[2020-07-14] MEDS ORDERED: dexAMETHasone 4 MG/ML VIAL ONE (11:32)
[2020-07-14] MEDS ORDERED: ONDANSETRON 4 MG/2 ML VIAL ONE (11:33)
[2020-07-14] MEDS ORDERED: ROCURONIUM 50 MG/5 ML VIAL IV ONE (11:33)
[2020-07-14] MEDS ORDERED: Ringers Lactate 1,000 ML IV ONE (11:44)
[2020-07-14] MEDS: NA CHLORIDE 0.9% 1,000 ML IV SCH ×2 (14:17→16:43)
[2020-07-15] MEDS: CLINDAMYCIN INJ 600 MG in NA CHLORIDE 0.9% 50 ML IV SCH ×3 (01:19→16:31)
[2020-07-15] MEDS: AMPICILLIN/SULBACT 3 GM in NA CHLORIDE 0.9% 100 ML IVPB SCH ×3 (01:21→16:31)
[2020-07-15] MEDS: NA CHLORIDE 0.9% 1,000 ML IV SCH ×3 (01:25→22:43)
[2020-07-15] MEDS: MORPHINE 2 MG/ML SYR IV PRN ×4 (03:26→21:42)
[2020-07-15 04:34] LABS: Absolute Lymphocytes (CBC) 1.8 K/uL (0.7-4.9); Basophils % 0.1 % (0-1.3); Hematocrit 38.3 % (39.6-49.0); Lymphocytes % 11.9 % (15.3-44.8); MPV 7.2 fL (7.6-11.3); RBC Red Blood Cell Count 4.33 M/uL (4.33-5.43)
[2020-07-15] MEDS: ALPRAZOLAM 0.5 MG TABLET PO PRN (04:34)
[2020-07-15 04:45] LABS: Magnesium 2.5 mg/dL (1.8-2.4); Potassium 4.3 mmol/L (3.5-5.1)
[2020-07-15] MEDS: HYDROCODONE/APAP 5/325 MG TAB PO PRN ×4 (05:36→19:13)
--- NOTE | 2020-07-15 07:07 | P.PN ---
Date of Service: 07/14/20 I was contacted on the morning of Jul [address] King. He stated the patient's symptoms were worsening without airway obstruction and that exam findings were more localizing and worsening on the right side. Due to the prior evalaution and imaging findings, we agreed with repeat imaging. Due to the odontogenic nature of this infection, I felt surgical drainage of the abscess without dental extraction would not be beneficial to the patient. I suggested contacting the [facility] service for consultation and surgical treatment of the infection including extraction. I will remain available as needed for any airway concerns.
[2020-07-15] MEDS: predniSONE 20 MG TAB PO SCH (09:21)
[2020-07-15] MEDS: ROSUVASTATIN 10 MG TAB PO SCH (09:21)
[2020-07-15] MEDS: ENOXAPARIN 40 MG/0.4 ML SQ SCH (09:22)
[2020-07-15] MEDS: SERTRALINE HCL 100 MG TAB PO SCH (09:26)
[2020-07-15] MEDS ORDERED: HYDROCORTISONE SUC 100 MG INJ IV ONE (16:00)
[2020-07-15] MEDS: HYDROCORTISONE SUC 100 MG INJ IV SCH (20:28)
[2020-07-16] MEDS: CLINDAMYCIN INJ 600 MG in NA CHLORIDE 0.9% 50 ML IV SCH ×2 (01:17→08:04)
[2020-07-16] MEDS: AMPICILLIN/SULBACT 3 GM in NA CHLORIDE 0.9% 100 ML IVPB SCH ×3 (01:18→16:36)
[2020-07-16] MEDS: HYDROCORTISONE SUC 100 MG INJ IV SCH ×3 (01:19→16:34)
[2020-07-16 02:57] VITALS: O2SAT 99
[2020-07-16] MEDS: NA CHLORIDE 0.9% 1,000 ML IV SCH ×2 (06:51→19:46)
[2020-07-16] MEDS: HYDROCODONE/APAP 5/325 MG TAB PO PRN ×4 (08:01→20:30)
[2020-07-16] MEDS: ENOXAPARIN 40 MG/0.4 ML SQ SCH (08:03)
[2020-07-16] MEDS: ROSUVASTATIN 10 MG TAB PO SCH (08:03)
[2020-07-16] MEDS: SERTRALINE HCL 100 MG TAB PO SCH (08:03)
[2020-07-16] MEDS: predniSONE 20 MG TAB PO SCH (09:00)
[2020-07-16] MEDS: MORPHINE 2 MG/ML SYR IV PRN ×2 (10:06→14:46)
[2020-07-16 11:43] LABS: BUN Blood Urea Nitrogen 19 mg/dL (7-18); Bicarbonate 29 mmol/L (21-32); Glucose Level 134 mg/dL (74-106); Magnesium 2.4 mg/dL (1.8-2.4); Phosphorus 2.4 mg/dL (2.5-4.9); Potassium 3.5 mmol/L (3.5-5.1); Sodium Level 140 mmol/L (136-145)
[2020-07-16 11:56] LABS: Absolute Lymphocytes (CBC) 1.3 K/uL (0.7-4.9); Basophils % 0.3 % (0-1.3); Hematocrit 37.7 % (39.6-49.0); Lymphocytes % 9.6 % (15.3-44.8); MPV 7.5 fL (7.6-11.3); RBC Red Blood Cell Count 4.35 M/uL (4.33-5.43)
--- NOTE | 2020-07-16 14:23 | P.PN ---
Subjective Date of Service: 07/15/20 Patient states his pain is worsened. Will go ahead and add anti-inflammatory with steroids. Dr. Quiñones to see patient later today. Review of Systems 10-point ROS is otherwise unremarkable Physical Examination - Vital Signs Temperature: 97.4 F Blood Pressure: 146/85 Pulse: 85 Respirations: 18 Pulse Ox (%): 99 - Physical Exam General: Alert, In no apparent distress, Oriented x3 HEENT: Atraumatic, PERRLA, EOMI Neck: Other (Dressing in place with penvose drain) Respiratory: Clear to auscultation bilaterally, Normal air movement Cardiovascular: Regular rate/rhythm, Normal S1 S2 Gastrointestinal: Normal bowel sounds, No tenderness Musculoskeletal: No tenderness Integumentary: No rashes Neurological: Normal speech, Normal tone, Normal affect Lymphatics: No axilla or inguinal lymphadenopathy - Studies Medications List Reviewed: Yes Assessment & Plan - Problems (Diagnosis) (1) Dental abscess Current Visit: Yes Status: Acute (2) Status post tooth extraction Current Visit: Yes Status: Acute (3) Submandibular abscess Current Visit: Yes Status: Acute - Plan 1. Continue with IV antibiotic 2. Continue with local wound care 3. Oral maxillofacial surgery consultation appreciated 4. Gentle IV hydration 5. Monitor CBC 6. Strict blood sugar monitoring 7. Pain control 8. Added IV steroids 9. GI and DVT prophylaxis Discharge Plan: Home Plan to discharge in: Greater than 2 days - Advance Directives Does patient have a Living Will: Yes Does patient have a Durable POA for Healthcare: Yes - Code Status/Comfort Care Code Status Assessed: Yes Code Status: Full Code Critical Care: No Time Spent Managing PTS Care (In Minutes): 35
[2020-07-17] MEDS: AMPICILLIN/SULBACT 3 GM in NA CHLORIDE 0.9% 100 ML IVPB SCH ×2 (01:01→08:51)
[2020-07-17] MEDS: HYDROCORTISONE SUC 100 MG INJ IV SCH ×2 (01:02→08:57)
[2020-07-17] MEDS: HYDROCODONE/APAP 5/325 MG TAB PO PRN ×2 (04:33→08:56)
[2020-07-17] MEDS: NA CHLORIDE 0.9% 1,000 ML IV SCH (04:43)
--- NOTE | 2020-07-17 08:03 | P.PN ---
Subjective Date of Service: 07/16/[address] Quiñones anyone to keep patient in the hospital through tonight for continued antibiotic therapy and discharge in the morning. Most likely discharge in morning if patient continues to improve. Review of Systems 10-point ROS is otherwise unremarkable Physical Examination - Vital Signs Temperature: 97.5 F Blood Pressure: 156/86 Pulse: 68 Respirations: 16 Pulse Ox (%): 98 - Physical Exam General: Alert, In no apparent distress, Oriented x3 HEENT: Atraumatic, PERRLA, EOMI Neck: Supple, JVD not distended Respiratory: Clear to auscultation bilaterally, Normal air movement Cardiovascular: Regular rate/rhythm, Normal S1 S2 Gastrointestinal: Normal bowel sounds, Soft and benign, Non-distended, No tenderness Musculoskeletal: No clubbing, No swelling, No tenderness Integumentary: No rashes Neurological: Normal speech, Normal tone, Normal affect Lymphatics: No axilla or inguinal lymphadenopathy - Studies Medications List Reviewed: Yes Assessment & Plan - Problems (Diagnosis) (1) Dental abscess Current Visit: Yes Status: Acute (2) Status post tooth extraction Current Visit: Yes Status: Acute (3) Submandibular abscess Current Visit: Yes Status: Acute - Plan Continue plan of care as mentioned below 1. Continue with IV antibiotic 2. Continue with local wound care 3. Oral maxillofacial surgery consultation appreciated 4. Gentle IV hydration 5. Monitor CBC 6. Strict blood sugar monitoring 7. Pain control 8. Added IV steroids 9. GI and DVT prophylaxis Discharge Plan: Home Plan to discharge in: Greater than 2 days - Advance Directives Does patient have a Living Will: Yes Does patient have a Durable POA for Healthcare: Yes - Code Status/Comfort Care Code Status: Full Code Critical Care: No Time Spent Managing PTS Care (In Minutes): 35
--- NOTE | 2020-07-17 08:09 | P.DS ---
Discharge Date: 07/17/20 Primary Care Provider: Kerline Russo Disposition: ROUTINE DISCHARGE Discharge Condition: GOOD Reason for Admission: Cj's angina - Problems (1) Dental abscess Status: Acute (2) Status post tooth extraction Status: Acute (3) Submandibular abscess Status: Acute Brief History of Present Illness: Patient is a 50-year-old male with history of depression, anxiety, cluster headaches presents the emergency department for facial swelling. Patient reports that he has been dealing with dental infection over the course of the last few days. Patient reports being on amoxicillin since Wednesday but having increased swelling over the last 2 days. Upon arrival to the ED patient noted to have submandibular and sublingual edema. Lab significant for white blood cell count 17 with left shift. ENT was consulted and saw the patient in the emergency department, patient with Cj's angina. At this time patient is able to handle his secretions very well speech is clear appropriate, in no increase in respiratory effort at all. Appears to be a mild to moderate case of Cj's. EENT okay with patient going to floor for close monitoring with IV antibiotics and steroids. CT does not identify any discrete drainable abscess. Patient has appointment on Wednesday to have offending tooth removed. Will admit for further evaluation and management. Hospital Course: She was given IV antibiotics. Patient Was seen by an oral maxillofacial surgery and had extraction of the tooth and drainage of the abscess. Patient had a and whose strain left in place. This was removed prior to discharge. Patient is doing better and at this time is stable for discharge home with outpatient follow up with oral maxillofacial surgeon in 1 week. Return to the Emergency room if symptoms worsen. Vital Signs/Physical Exam: Temp Pulse Resp BP Pulse Ox 97.5 F 68 16 156/86 H 98 07/17/20 08:02 07/17/20 08:02 07/17/20 08:02 07/17/20 08:02 07/17/20 08:02 General: Alert, In no apparent distress, Oriented x3 Neck: Other (penvose drain) Laboratory Data at Discharge: WBC 13.10 K/uL (4.3-10.9) H 07/16/20 11:09 Hgb 12.5 g/dL (13.6-17.9) L 07/16/20 11:09 Hct 37.7 % (39.6-49.0) L 07/16/20 11:09 Plt Count 289 K/uL (152-406) 07/16/20 11:09 PT 11.0 SECONDS (9.5-12.5) 07/12/20 21:45 INR 0.96 07/12/20 21:45 APTT 27.9 SECONDS (24.3-36.9) 07/12/20 21:45 Sodium 140 mmol/L (136-145) 07/16/20 11:09 Potassium 3.5 mmol/L (3.5-5.1) 07/16/20 11:09 BUN 19 mg/dL (7-18) H 07/16/20 11:09 Creatinine 0.78 mg/dL (0.55-1.3) 07/16/20 11:09 Glucose 134 mg/dL (74-106) H 07/16/20 11:09 Phosphorus 2.4 mg/dL (2.5-4.9) L 07/16/20 11:09 Magnesium 2.4 mg/dL (1.8-2.4) 07/16/20 11:09 Total Bilirubin 0.8 mg/dL (0.2-1.0) 07/12/20 21:45 AST 14 U/L (15-37) L 07/12/20 21:45 ALT 29 U/L (12-78) 07/12/20 21:45 Alkaline Phosphatase 90 U/L (45-117) 07/12/20 21:45 Home Medications: ALPRAZolam [Xanax*] 0.5 mg PO TID PRN 07/13/20 Rosuvastatin Calcium 20 mg PO DAILY 07/13/20 Sertraline HCl 100 mg PO DAILY 07/13/20 Hydrocodone Bit/Acetaminophen [[place] 10-325 Tablet] 1 each PO Q8HP PRN #30 tablet 07/17/20 clindamycin HCL [Clindamycin HCl] 300 mg PO Q8H #21 capsule 07/17/20 predniSONE [Deltasone*] 10 mg PO BID #6 tab 07/17/20 New Medications: clindamycin HCL [Clindamycin HCl] 300 mg PO Q8H #21 capsule predniSONE [Deltasone*] 10 mg PO BID #6 tab Hydrocodone Bit/Acetaminophen [[place] 10-325 Tablet] 1 each PO Q8HP PRN #30 tablet PRN Reason: severe pain Physician Discharge Instructions: -OK TO DC IV AND DC HOME -FOLLOW-UP WITH PCP IN 1-2 WEEKS -FOLLOW-UP WITH Oral maxillofacial surgery IN 1-2 WEEKS -PLEASE MAKE SURE ALL DIAGNOSTIC STUDIES ARE AVAILABLE AND HAVE BEEN REVIEWED WITH PATIENT PRIOR TO DISCHARGE -RETURN TO THE ER IF Symptoms worsen -CALL DR. MICHAEL AT [phone] IF ANY QUESTIONS REGARDING HOSPITAL STAY -PLEASE CALL THE FLOOR AT [phone] IF ANY MEDICATION OR NURSING QUESTIONS Diet: AHA Activity: Fall precautions Followup: Bar Quiñones DDS, MD [ACTIVE - CAN ADMIT] - Unknown,U [Primary Care Provider] - Time spent managing pt's care (in minutes): 35
[2020-07-17] MEDS: ENOXAPARIN 40 MG/0.4 ML SQ SCH (08:51)
[2020-07-17] MEDS: SERTRALINE HCL 100 MG TAB PO SCH (08:52)
[2020-07-17] MEDS: ROSUVASTATIN 10 MG TAB PO SCH (08:57)
--- NOTE | 2020-07-29 00:40 | CON ---
Date of Consultation: 07/14/2020 Time: 11:25 a.m. Chief Complaint: "I have swelling in my neck." History Of Present Illness: The patient is a 50-year-old male, who presented to [facility] complaining of jaw and neck pain on the right side. He was evaluated in the emergenc y room and found to have cellulitis in the right submandibular area and neck. He had an elevated whi te count of 17,000. He was admitted to the second floor and given IV antibiotics. The plan for jayson escotokristyn was to stabilize the patient with IV antibiotics and then discharge for care from an oral and maxillofacial surgeon. However, over the first 24 hours of admission, the patient's white count incr eased and the swelling in his neck and submandibular area increased. A CT scan was done today and it was found to have small abscesses on the right submandibular area and right floor of the mouth on th e lingual border of the mandible. The edema and erythema in his neck progressed across the midline r esulting in Cj's angina. Past Medical History: Reviewed. Past Surgical History: Reviewed. Social History: The patient drinks alcohol socially. He smokes 1/2 pack to 1 pack of cigarettes per day. Physical Examination: GENERAL: The patient is a 50-year-old white male, who is well nourished, and in mild distress, compl aining of pain and a little bit of difficulty swallowing because of swelling on the right side of his neck. ORAL: The patient has a large area of decay in the lower right first molar tooth #30. Tooth #31 viramontes s not have any gross decay, but is slightly mobile. The floor of the mouth is firm. There is some s welling in the lingual vestibule on the right side and in the anterior floor of mouth. The left side in the lingual vestibule was soft. The patient has some tense edema in the right submandibular area extraorally, extends down his neck to the clavicle. There is erythema in the skin along the right s minerva of the neck and submandibular area. There is no swelling in the midface and no swelling around t he buccinator/buccal spaces. The patient has limited abduction opening to about 30 mm. The patient is swallowing his secretions and there are no signs of airway compromise. Radiographic Exam: A CT scan was done today, which showed a 20 x 13 mm abscess on the right side of the lingual border of the mandible communicating with another 20 x 7 mm abscess along the inferior simon rder of the mandible on the right submandibular space. There is marked edema and cellulitis extendin g down the right side of the neck and around the base of the tongue. Diagnosis: Right submandibular abscess secondary to odontogenic infection with cellulitis in the luly ateral sublingual and submental spaces, also involving the right submandibular space, technically a L udwig's angina. The patient has nonrestorable decay in tooth #30 and possibly an endodontic or perio dontal abscess in tooth #31. Plan: The patient will be taken to the operating room as soon as possible where under general anesth esia, an incision and drainage of right submandibular abscess will be performed, extraction of teeth #30 and #31 will be performed as well as any other indicated teeth. The risks, benefits, and details of the procedure have been discussed with the patient today. CRISTY/VINNIE Voice ID: [id number] Report ID: [id number]
--- NOTE | 2020-07-29 01:04 | PN ---
Date of Progress Note: 07/15/2020 Time Of Exam: 7:35 p.m. Subjective: I am having a little trouble swallowing. Objective: The patient has been afebrile for the past 24 hours. There is some moderate decrease in swelling on the right side of the neck and submental area. There is marked less edema on the left si de of the neck. The right submandibular area is still erythematous. A [place] drain is in place. T here is only a small amount of drainage on the bandage. The patient still has limited opening of the jaw. The extraction sites appear to be healing without any signs of complication. There was no ble eding and there is an organized blood clot in the socket. The floor of the mouth is soft, although t he patient complains of some pain when swallowing. He states that he awoke this morning and had mode rate dysphagia. Dr. Sterling gave the patient some corticosteroids and this appears to improve the patie nt's dysphagia. Laboratory Data: The patient's white cell has decreased from 19,000 to 14,000. Assessment: The patient has less edema in the right side and left side of the neck. The patient's w thomas cell count is decreasing and he is afebrile. He appears to be handling his secretions and liqui ds without problems, and there is no sign of airway compromise. Overall, he is improved. Plan: Continue IV clindamycin and Unasyn. The patient will be re-evaluated in 24 hours. CRISTY/VINNIE Voice ID: [id number] Report ID: [id number]
--- NOTE | 2020-07-29 01:26 | PN ---
Date of Progress Note: 07/16/2020 Time Of Exam: 5:30 p.m. Subjective: I am feeling a lot better today. Objective: The patient has much less swelling and erythema on the right side of the neck and submand ibular area. He has a little more opening and complains of no pain when swallowing. The floor of th e mouth is soft. The extraction sites appear to be healing without complication. There is no bleedi ng or exudate. The [place] drain is in place with very little drainage from the wound. The patient has been afebrile for the past 24 hours. His white cell count has decreased from 14.90 to 13.10. Th e patient is taking a p.o. diet well and is handling his fluids and secretions with no problem. Assessment: The patient is marked decrease in right submandibular and sublingual swelling. There is no longer any erythema on the right side of the neck. He is much improved. Plan: I will discuss possible discharge in the morning with Dr. Sterling. CRISTY/VINNIE Voice ID: [id number] Report ID: [id number]
--- NOTE | 2020-07-29 02:21 | OP ---
Date of Procedure: 07/14/2020 Surgeon: Bar Quiñones DDS, MD [employer] Career Manager: Staff. In-time: 1:05 pm. Preoperative Diagnoses: Right submandibular abscess secondary to odontogenic infection, cellulitis i n the bilateral sublingual spaces, cellulitis in the left submandibular space, cellulitis in the subm ental space, Cj's angina, nonrestorable decay teeth #30 and #31. Postoperative Diagnoses: Right submandibular abscess secondary to odontogenic infection, cellulitis in the bilateral sublingual spaces, cellulitis in the left submandibular space, cellulitis in the sub mental space, Cj's angina, nonrestorable decay teeth #30 and #31. Procedure: Extraction of tooth #30 and #31, extraoral incision and drainage of the right submandibul ar abscess. Estimated Blood Loss: Less than 20 cc. Specimen: Pus from the abscess, submitted for aerobic and anaerobic cultures. Findings: 2.0 cc of pale yellow pus from the right submandibular and sublingual spaces, coronal deca y in teeth #30 and #31. Anesthesia: General endotracheal. Complications: None. Drains: One quarter-inch [place] drain to the right submandibular space. Fluids: 800 LR. The patient was transferred to the recovery room in stable and satisfactory condition. Procedure In Detail: The patient was taken to the operating room and placed on the table in the supi ne position. General anesthesia was begun and the patient was orotracheally intubated without compli cation. The patient was then prepped and draped in a normal sterile fashion. A throat pack was plac ed and then the oral cavity was irrigated with chlorhexidine solution. A mixture of 1% lidocaine wit h 1:100,000 epinephrine and 0.5% Marcaine was injected into the right oral vestibule and floor of the mouth. Total of 8 cc of the local anesthetic mixture was delivered. A sterile syringe and 18-gauge needle were introduced into the submandibular space Extraorally and a small amount of pus was aspira chloé. The pus was submitted for aerobic and anaerobic wound cultures. Small amount of local anesthes ia was then given in the skin about 2 cm below the inferior border of the mandible on the right side. Attention was turned to the decayed teeth. Teeth numbers #30 and #31 were luxated using straight e levators. [place] dental forceps was used to extract tooth #31. The tooth was extracted in total. [place] forceps was used to elevate tooth #30. The tooth was decayed and brittle and several piece s of the crown were removed using the rongeurs. A Makenna elevator was used to luxate the distal root and it was removed with rongeur. The mesial root was brittle and was fracturing in the small pieces. A #15 scalpel blade was used to make an incision in the buccal vestibule around the sulcus of teeth #30 and the #31 extraction site. A full-thickness mucoperiosteal flap was reflected buccally to exp ose the area. A #8 round bur was used in the drill to remove some bone buccal to the mesial root of tooth #30. A fissure bur was used to trough the bone. Straight elevators were used to elevate the r emaining foot and it was removed in several pieces. Both of the sockets were curetted and irrigated with saline solution. No pus was expressed from the sockets. Sharp edges of alveolar bone were smoo thed with the rongeurs and the bone file. 4-0 chromic gut interrupted sutures were used to reapproxi mate the mucosa around the extraction sites. A new #15 blade was used to make an incision approximat chacho 2.5 cm below the inferior border of the mandible over the right submandibular space. The incisio n was carried through the skin only. Aniyah forceps was used to bluntly dissect to the submandibular space to the inferior border of the mandible. Aniyah forceps was then used to bluntly dissect into th e sublingual space just lateral to the lingual border of the mandible. Approximately 2.0 cc of pale yellow pus was expressed from the wound. Additional aerobic and anaerobic cultures were taken. The wound was thoroughly irrigated with copious amounts of sterile saline. A quarter-inch [place] drain was cut and was introduced into the wound using the Aniyah forceps. The drain was placed around the i nferior border of the mandible. The drain was secured to the skin and the wound using 2-0 silk sutur es. The oral cavity was suctioned and cleaned of all fluid and debris. Throat pack was removed and then the oropharynx was thoroughly suctioned. A 4 x 4 gauze dressing was placed over the [place] maurisio in Extraorally and secured with tape. The patient was then awakened from general anesthesia and extu bated in the operating room. He was taken to the recovery room in stable and satisfactory condition. Sponge and needle counts were correct. There were no complications. CRISTY/VINNIE Voice ID: [id number] Report ID: [id number]
[2020-08-05 04:58] VITALS: BP 146/85; TEMP 97.4
== END 2020-07-17 09:50 | disposition home or self-care (01) | DRG 138 ==
LOC: ER 21:10 → ERHOLD 23:14 → 2ND 07-13 01:09
PROVIDERS: ADMIT Family Medicine; ATTEND Hospitalist
PROC: 0C9XXZ1 Drainage of Lower Tooth, External Approach, Multiple (ICD-10-PCS; 2020-07-14)
PROC: 0J910ZZ Drainage of Face Subcutaneous Tissue and Fascia, Open Approach (ICD-10-PCS; 2020-07-14)
PROC: 0CDXXZ1 Extraction of Lower Tooth, Multiple, External Approach (ICD-10-PCS; principal; 2020-07-14 11:30)
DX: K12.2 Cellulitis and abscess of mouth (principal); F41.8 Other specified anxiety disorders; K02.9 Dental caries, unspecified; F17.210 Nicotine dependence, cigarettes, uncomplicated; Z79.52 Long term (current) use of systemic steroids; Z79.899 Other long term (current) drug therapy; Z20.822 Contact with and (suspected) exposure to COVID-19
CPT/HCPCS: 36415; 70491; 80048; 80076; 82565; 83735; 84100; 84145; 85025; 85610; 85730; 87040; 87070; 87075; 87205; 96361; 96365; 96375; 99285; J0295; J1100; J1650; J1720; J2250; J2270; J2405; J2704; J2710; J3010; J7030; J7120; J7512; Q9967; U0003